=== PATIENT | female | born 1935 | race Caucasian/White ===

== ENCOUNTER → 2018-02-19 | Outpatient (CLI) | payer MEDICARE, OTHER ==
[2018-02-19 10:59] LABS: Calcium 8.8 mg/dL (8.4-10.2); Potassium 4.1 mmol/L (3.5-5.1)
[2018-02-19 19:14] LABS: Hemoglobin A1C 6.2 % (4.0-6.0)
== END | disposition home or self-care (01) ==
LOC: LABWHC1 10:00
PROVIDERS: ATTEND Internal Medicine
DX: E11.65 Type 2 diabetes mellitus with hyperglycemia (principal); E78.5 Hyperlipidemia, unspecified; N18.3 Chronic kidney disease, stage 3 (moderate); E11.22 Type 2 diabetes mellitus with diabetic chronic kidney disease
CPT/HCPCS: 36415; 80048; 83036

== ENCOUNTER → 2018-08-19 | Outpatient (CLI) | payer MEDICARE, OTHER ==
--- NOTE | 2018-08-19 14:03 | USB ---
Reason for exam: clinical finding. History: Patient history of breast cancer. Family history of breast cancer in paternal aunt and breast cancer in sister. Mastectomy of the left breast. Took antineoplastic for 5 years. Indicated problem(s): palpable abnormality and lump or thickening in the left breast. Physical Findings: Nurse Summary: 1cm scar and axilla (nurse dw). US Breast Limited LT Left limited breast ultrasound including focal area of concern, retroareolar and axilla demonstrates a 1.3 x 1.5 x 1.1cm irregular, lobular, mixed, hypoechoic, vascular lesion at 2 o'clock mid chest incision and a 2.3 x 2.7 x 2.3cm irregular, lobular, mixed, hypoechoic, vascular lesion at the axilla. These results were verbally communicated with the patient and result sheet given to the patient on 08/19/18. ASSESSMENT: Highly suggestive of malignancy, BI-RAD 5 RECOMMENDATION: Ultrasound core biopsy of the left breast. Called Dr. Garza with mammographic findings and has scheduled an appointment for the patient for 09/07/18 at 9:[address] Rojo. Biopsy scheduled for 08/31/18 at 12:20. PRELIMINARY REPORT CALLED AND FAXED TO DR. ROJO ON 08/19/18.
--- NOTE | 2018-08-19 14:04 | XR ---
EXAMINATION TYPE: XR chest 2V, XR ribs LT DATE OF EXAM: 08/19/2018 COMPARISON: Prior chest x-ray August 10, 2013. HISTORY: History of left-sided breast cancer with lump on left chest and axillary region per patient. Cough per order. TECHNIQUE: Frontal and lateral views of the chest are obtained. Frontal and oblique images of the le ft-sided ribs are acquired. FINDINGS: There is no focal air space opacity, pleural effusion, or pneumothorax seen. The cardiac silhouette size is within normal limits. Atherotic change in aortic knob is present. The osseous st ructures are intact. Cholecystectomy clips are redemonstrated. Left breast shadow is redemonstrated a bsent with left axillary surgical clips. No acute displaced left-sided rib fractures are seen. No suspicious focal expansile or destructive le ft rib lesion is identified on images saved. IMPRESSION: 1. Chronic changes without acute cardiopulmonary process. 2. No suspicious rib lesions or acute displaced fractures. If clinical concern for palpable mass pers ists further investigation with CT may be warranted.
== END | disposition home or self-care (01) ==
LOC: RADUSWWP 12:10
PROVIDERS: ATTEND Internal Medicine
DX: J98.4 Other disorders of lung (principal); L90.5 Scar conditions and fibrosis of skin; Z85.3 Personal history of malignant neoplasm of breast; Z90.12 Acquired absence of left breast and nipple
CPT/HCPCS: 71046

== ENCOUNTER → 2018-08-31 | Day surgery (SDC) | payer MEDICARE, OTHER ==
--- NOTE | 2018-08-31 13:13 | USB ---
EXAMINATION TYPE: US biopsy breast VAD LT, US biopsy breast add'l VAD LT DATE OF EXAM: 08/31/2018 CLINICAL HISTORY: N63 LUMP. Abnormal ultrasound. History of breast cancer diagnosed 1990. TECHNIQUE: Ultrasound guided core biopsy of left breast 2 sites with clip placement. COMPARISON: Prior left breast ultrasound August 19, 2018 FINDINGS: The procedure of ultrasound guided core biopsy was explained to the patient. Benefits, alternatives, and risks were discussed. An informed consent was then obtained. The patient was placed in supine positioning for imaging and for the procedure. Preprocedure ultrasound redemonstrates lobulated 1.3 cm hypoechoic mass 2:00 position and larger roughly 2.5 cm heterogeneous hypoechoic mass towards the axillary tail. The overlying skin was prepped and draped in usual sterile fashion. Lidocaine buffered with bicarbonate was used as anesthetic into the skin. Lidocaine with epinephrine is used as anesthetic into the deeper tissue up to area of concern in the left breast. A jenny was made with surgical scalpel. Under ultrasound guidance, a 12-gauge vacuum assisted biopsy gun device was used to obtain 4 core samples of the 2:00 lesion and 2 satisfactory core samples of the mass towards the axilla. Following this, a biopsy clip was left in both lesions. The patient tolerated the procedure well without any immediate complication. The patient was kept in the radiology department for short stay after the procedure and then discharged home in stable condition. Postprocedure mammogram cannot be performed per technologist due to lumpectomy changes with minimal residual tissue to compress. IMPRESSION: Successful, uncomplicated ultrasound guided core biopsy of 2 areas of concern in the remnant left breast or chest wall, full pathology results to follow. High index of suspicion noted at time of procedure for both sites. Pathology Results: Malignant A. LEFT BREAST, 2:00, ULTRASOUND GUIDED CORE BIOPSY: Invasive moderately differentiated ductal carcinoma (Grade 2). See Surgical Pathology Cancer Case Summary. B. LEFT AXILLARY TAIL, ULTRASOUND GUIDED CORE BIOPSY: Invasive moderately differentiated ductal carcinoma (Grade 2). See Surgical Pathology Cancer Case Summary. ADDENDUM REPORT Tumor cells positive for Estrogen Receptor and Progesterone Receptor by immunohistochemistry. Tumor cells negative for HER2/Jada by immunohistochemistry. Recommendation Surgical consult of the left breast. BRITTD
[2018-08-31 13:39] VITALS: BP 151/78; PULSE 59; RESP 13; TEMP 98
--- NOTE | 2018-08-31 14:14 | MM ---
Reason for exam: additional evaluation requested from abnormal screening. History: Patient history of breast cancer. Family history of breast cancer in paternal aunt and breast cancer in sister. Mastectomy of the left breast, 2000. Took antineoplastic for 5 years. [facility] Mammo LT Wo CAD CC and LM view(s) were taken of the left breast. ASSESSMENT: Post procedure mammogram for marker placement RECOMMENDATION: Surgical consultation of the left breast. PENDING PATHOLOGY RESULTS. JOSE MARIA
== END | disposition home or self-care (01) ==
LOC: RADUSWWP 11:06
PROVIDERS: ATTEND Internal Medicine
DX: C50.612 Malignant neoplasm of axillary tail of left female breast (principal); Z85.3 Personal history of malignant neoplasm of breast; Z80.3 Family history of malignant neoplasm of breast; Z90.12 Acquired absence of left breast and nipple
CPT/HCPCS: 88305; 88342; 88341; 77065; 19083; 19084; A4648; J2001

== ENCOUNTER → 2018-09-19 | Outpatient (CLI) | payer MEDICARE, OTHER ==
--- NOTE | 2018-09-21 07:23 | PE ---
EXAMINATION TYPE: PET CT fusion skull to thigh DATE OF EXAM: 09/19/2018 CLINICAL HISTORY: 82-year-old female initial staging left breast cancer recurrence. Patient with hist ory of remote left breast cancer diagnosed in 2000 status postsurgery. TECHNIQUE: Following the intravenous administration of 10.73 mCi of F-18 FDG, whole body images are performed from the skull base to the midthigh. Images are reviewed on the computer in the coronal, axial, and sagittal planes. Reconstructed rotating images are created on independent workstation and reviewed on the computer. A localization and attenuation correction CT is performed in conjunction with the PET scan. Glucose level: 125 mg/dL CTDI: 4.83 mGy DLP: 429.85 mGy-cm COMPARISON: Correlation ultrasound-guided biopsy 08/31/2018. FINDINGS: PET: Physiologic FDG uptake within the neck. Postsurgical changes of left mastectomy and axillary node dissection. There is evidence of left axill marc recurrence with a dominant left axillary mass measuring 2.5 cm, max SUV 3.5. Approximately 3 smaller hypermetabolic nodes are present in the left axilla just superiorly measuring up to 1.5 cm, max SUV 2.6. There is also focal chest wall recurrence at the mastectomy site measuring 1.2 cm, max SUV 2.6. Hypermetabolic mediastinal lymph nodes are present in the pretracheal and lower right paratracheal re gion as well as the subcarinal region measuring up to 9 mm, max SUV 6.1. The small hypermetabolic right hilar lymph node is also present, max SUV 4.8. Lower right paraesophageal lymph node is also present measuring 1.3 cm, max SUV 5.2. Average liver SUV 2.9. There is mild right hemicolonic uptake. More focal moderate to intense uptake is present at the junct ion of the cecum and ascending colon and also at the hepatic flexure (max SUV 5.2), probably physiolo gic but can be correlated with direct visualization. Otherwise, physiologic FDG uptake in the abdomen and pelvis. ATTENUATION CORRECTION CT: Visualized paranasal sinuses are clear. No cervical lymphadenopathy. Heart upper limits of normal size without pericardial effusion. Coronary vessel calcifications are pr esent. Ascending aorta borderline ectatic at 3.5 cm with mild atelectatic arch calcifications and co nventional arch vessel branching anatomy. Large caliber to the main right and left pulmonary arteries at 2.9 and 3.1 cm, respectively, suggests underlying pulmonary arterial hypertension. No consolidati on or pleural effusion. Cholecystectomy clips are present. Inferior splenule. No adrenal nodularity. Tiny calcified granuloma right liver lobe. No dilated small bowel, free fluid, or free air. Moderate atherosclerotic calcific ations abdominal aorta and iliac arteries. Normal appendix. No mesenteric or retroperitoneal lymphade nopathy. There is sigmoid diverticulosis. Bladder nondistended. Uterus is visualized. Ovaries not clearly seen, likely small and postmenopausal . No abnormal fluid collection in the pelvis or pelvic lymphadenopathy. Bones: Degenerative changes at the hips and pubic symphysis. No osseous destructive process seen. IMPRESSION: 1. Status post left mastectomy with a left axillary recurrence characterized by a dominant 2.5 cm mas s. Additional 3 smaller metastatic left axillary lymph nodes are present measuring up to 1.5 cm. Ther e is also left chest wall recurrence at the mastectomy site measuring 1.2 cm. 2. Nonenlarged and mildly enlarged metastatic mediastinal lymphadenopathy (paratracheal, subcarinal, right hilar, and lower right paraesophageal lymph nodes measuring up to 1.3 cm). 3. No additional metastatic disease identified. 4. There are a couple focal areas of moderate uptake along the right side of the colon which may be p hysiologic. Consider correlation with direct visualization as indicated to exclude small mucosal lesi ons. 5. Incidental: Suspect underlying pulmonary arterial hypertension. Sigmoid diverticulosis.
== END | disposition home or self-care (01) ==
LOC: RADPETMAIN 13:59
PROVIDERS: ATTEND Internal Medicine
DX: C77.3 Secondary and unspecified malignant neoplasm of axilla and upper limb lymph nodes (principal); C77.1 Secondary and unspecified malignant neoplasm of intrathoracic lymph nodes; C50.812 Malignant neoplasm of overlapping sites of left female breast; K57.30 Diverticulosis of large intestine without perforation or abscess without bleeding; Z90.12 Acquired absence of left breast and nipple
CPT/HCPCS: 78815; A9552

== ENCOUNTER → 2018-10-30 | Outpatient (CLI) | payer MEDICARE, OTHER ==
--- NOTE | 2018-10-30 15:46 | BD ---
EXAMINATION TYPE: Axial Bone Density DATE OF EXAM: 10/30/2018 COMPARISON: NONE CLINICAL HISTORY: Height: 65 Weight: 205.5 FRAX RISK QUESTIONS: Alcohol (3 or more units per day): no Family History (Parent hip fracture): no Glucocorticoids (More than 3mos): no (Ex: prednisone, prednisolone, methylprednisolone, dexamethasone, and hydrocortisone). History of Fracture in Adulthood: no Secondary Osteoporosis: 1. Type 1 Diabetes: no 2. Hyperthyroidism: no 3. Menopause before 45: no 4. Malnutrition: no 5. Chronic liver disease: no Rheumatoid Arthritis: no Current Tobacco Use: no RISK FACTORS HISTORY OF: Family History of Osteoporosis: yes Active: yes Diet low in dairy products/other sources of calcium: yes Postmenopausal woman: age53 Lost more than 2 inches in height since high school: no MEDICATIONS: Additional History: pt had breast cancer in 2000 and in 2018 EXAM MEASUREMENTS: Bone mineral densitometry was performed using the [employer] System. Bone mineral density as measured about the Lumbar spine is: ----- L1-L4(G/cm2): 1.026 T Score Values are as follows: ----- L2: -1.5 ----- L3: -1.2 ----- L4: -1.7 ----- L1-L4: -1.3 Bone mineral density has: increased 4.6 % since study of: 08.10.2013 Bone mineral density about the R hip (g/cm2): 1.407 Bone mineral density about the L hip (g/cm2): 1.464 T Score values are as follows: -----R Neck: 2.7 -----L Neck: 3.1 -----R Total: -0.6 -----L Total: -0.7 Bone mineral density has: increased 4.4 % since study of: 08.10.2013 IMPRESSION: Osteopenia (T Score between -2.5 and -1) process. There remains slightly increased risk of fracture and the patient may be considered for treatment. Re-Screen 2-5 years. NOTE: T-SCORE=SD OF THE YOUNG ADULT MEAN.
== END ==
LOC: RADBDWWP 09:40
PROVIDERS: ATTEND Internal Medicine Hematology & Oncology
DX: C50.112 Malignant neoplasm of central portion of left female breast (principal); M85.80 Other specified disorders of bone density and structure, unspecified site; Z78.0 Asymptomatic menopausal state
CPT/HCPCS: 77080

== ENCOUNTER → 2019-03-18 | Outpatient (CLI) | payer MEDICARE, OTHER ==
--- NOTE | 2019-03-18 12:42 | XR ---
EXAMINATION TYPE: XR chest 2V DATE OF EXAM: 03/18/2019 COMPARISON: 08/19/2018 INDICATION: J06.9 TECHNIQUE: Frontal and lateral views of the chest are obtained. FINDINGS: The heart size is normal. The pulmonary vasculature is normal. Mild right lower lobe infiltrate is present. Coronary for subsegmental atelectasis. Early pneumonia i s not excluded.. IMPRESSION: 1. Mild infiltrate at the right posterior lung base. Correlate for subsegmental atelectasis. Early pn eumonia could be considered.
[2019-03-18 12:47] LABS: Basophils # (A) 0.1 k/uL (0-0.2); Basophils % (A) 2 %; Eosinophils # (A) 0.1 k/uL (0-0.7); Eosinophils % (A) 2 %; HCT 33.2 % (34.0-46.0); HGB 11.3 gm/dL (11.4-16.0); Lymphocytes # (A) 0.8 k/uL (1.0-4.8); Lymphocytes % (A) 24 %; MCH 36.7 pg (25.0-35.0); Macrocytosis Moderate; Mean Platelet Volume 7.4; Monocytes # (A) 0.2 k/uL (0-1.0); Monocytes % (A) 6 %; Neutrophils % (A) 63 %; Platelet Count 193 k/uL (150-450); RBC 3.07 m/uL (3.80-5.40); RDW 14.9 % (11.5-15.5); WBC 3.2 k/uL (3.8-10.6)
== END | disposition home or self-care (01) ==
LOC: LABWHC1 11:23
PROVIDERS: ATTEND Internal Medicine
DX: J98.11 Atelectasis (principal); R91.8 Other nonspecific abnormal finding of lung field
CPT/HCPCS: 36415; 71046; 85025

== ENCOUNTER 2019-04-02 08:05 | Inpatient (IN) | payer MEDICARE, OTHER ==
[2019-04-02] MEDS ORDERED: ASPIRIN 81 MG PO STA (08:27)
[2019-04-02] MEDS ORDERED: METOPROLOL TARTRATE 25 MG TAB PO STA (08:28)
--- NOTE | 2019-04-02 08:37 | ED ---
General Adult HPI - General Chief complaint: Chest Pain Stated complaint: SOB, Chest Pain Time Seen by Provider: 04/02/19 08:10 Source: patient, family, RN notes reviewed Mode of arrival: wheelchair Limitations: no limitations - History of Present Illness Initial comments: This is an 83-year-old female presents emergency department with past medical history significant for breast cancer and atrial fibrillation as well as high blood pressure high cholesterol. Patient states she is a diet-controlled diabetic. Patient comes in today because at 4:30 this morning she woke up with a pain in her chest that radiated to her back and it made her short of breath. Patient states she's had no fever chills or cough. Patient states she's had A. fib in the past but it never caused her pain in the past. Patient denies any calf tenderness. Patient states she normally has some edema in her legs but that it looks pretty good. Patient denies abdominal pain patient denies nausea vomiting diarrhea per patient denies headache patient denies numbness weakness. Patient denies any lightheadedness or dizziness. - Related Data Home Medications Medication Instructions Recorded Confirmed Cholecalciferol [Vitamin D3] 1,000 unit PO DAILY 03/27/16 04/02/19 Apixaban [Eliquis] 5 mg PO BID 08/26/18 04/02/19 Calcium/Magnesium/Zinc 1 tab PO DAILY 08/26/18 04/02/19 [Qfjsohc-Gbrkbebjo-Pnhu Tablet] Cetirizine HCl [Zyrtec] 10 mg PO DAILY PRN 08/26/18 04/02/19 Cinnamon Bark [Cinnamon] 500 mg PO MOWEFR 08/26/18 04/02/19 Cranberry Fruit Extract [Cranberry] 200 mg PO DAILY 08/26/18 04/02/19 Rosuvastatin Calcium [Crestor] 5 mg PO MOWEFR 08/26/18 04/02/19 amLODIPine [Norvasc] 2.5 mg PO DAILY 08/26/18 04/02/19 Fish Oil/Dha/Epa [Fish Oil 1,200 1 cap PO MOWEFR 04/02/19 04/02/19 mg Fish Oil] Furosemide [Lasix] 20 mg PO DAILY 04/02/19 04/02/19 Metoprolol Tartrate [Lopressor] 25 mg PO BID 04/02/19 04/02/19 Omeprazole [PriLOSEC] 20 mg PO DAILY 04/02/19 04/02/19 Prochlorperazine [Compazine] 10 mg PO Q6H PRN 04/02/19 04/02/19 Ribociclib Succinate/Letrozole 1 dose PO DIRECTED 04/02/19 04/02/19 [Kisqali Femara 400 mg Co-Pack] Ubidecarenone [Co Q-10] 300 mg PO DAILY 04/02/19 04/02/19 Allergies Allergy/AdvReac Type Severity Reaction Status Date / Time erythromycin base Allergy Rash/Hives Verified 04/02/19 09:14 [From E-Mycin] Sulfa (Sulfonamide Allergy Rash/Hives Verified 04/02/19 09:14 Antibiotics) Review of Systems ROS Statement: Those systems with pertinent positive or pertinent negative responses have been documented in the HPI. ROS Other: All systems not noted in ROS Statement are negative. Past Medical History Past Medical History: Atrial Fibrillation, GERD/Reflux, Hyperlipidemia, Hypertension Additional Past Medical History / Comment(s): bilat cataracts History of Any Multi-Drug Resistant Organisms: None Reported Past Surgical History: Breast Surgery, Cholecystectomy Additional Past Surgical History / Comment(s): Left breast mastectomy 2000, Cataract surgey 2016, breast cancer 2019 Past Anesthesia/Blood Transfusion Reactions: No Reported Reaction Past Psychological History: No Psychological Hx Reported Smoking Status: Never smoker Past Alcohol Use History: None Reported Past Drug Use History: None Reported General Exam - General Exam Comments Initial Comments: GENERAL: Patient is well-developed and well-nourished. Patient is nontoxic and well- hydrated and is in mild distress. ENT: Neck is soft and supple. No significant lymphadenopathy is noted. Oropharynx is clear. Moist mucous membranes. Neck has full range of motion without eliciting any pain. EYES: The sclera were anicteric and conjunctiva were pink and moist. Extraocular movements were intact and pupils were equal round and reactive to light. Eyelids were unremarkable. PULMONARY: Unlabored respirations. Good breath sounds bilaterally. No audible rales rhonchi or wheezing was noted. CARDIOVASCULAR: Patient's heart rate is irregular and rapid. Heart rates about 140 beats minute ABDOMEN: Soft and nontender with normal bowel sounds. No palpable organomegaly was noted. There is no palpable pulsatile mass. SKIN: Skin is clear with no lesions or rashes and otherwise unremarkable. NEUROLOGIC: Patient is alert and oriented x3. Cranial nerves II through XII are grossly intact. Motor and sensory are also intact. Normal speech, volume and content. Symmetrical smile. MUSCULOSKELETAL: Normal extremities with adequate strength and full range of motion. No lower extremity swelling or edema. No calf tenderness. LYMPHATICS: No significant lymphadenopathy is noted PSYCHIATRIC: Normal psychiatric evaluation. Limitations: no limitations Course Vital Signs 04/02/19 04/02/19 04/02/19 08:10 09:10 09:56 Temperature 98 F Pulse Rate 104 H 145 H Pulse Rate [ 131 H Flight Nurse ] Respiratory 16 20 Rate Blood Pressure 125/81 98/62 O2 Sat by Pulse 95 97 Oximetry 04/02/19 04/02/19 04/02/19 09:57 10:20 10:33 Temperature Pulse Rate 125 H 106 H 115 H Pulse Rate [ Flight Nurse ] Respiratory 20 20 20 Rate Blood Pressure 106/52 98/76 109/79 O2 Sat by Pulse 97 97 97 Oximetry Medical Decision Making - Medical Decision Making EKG shows atrial for ablation with rapid ventricular response at 145 bpm QRS is 86 QT interval 318 QTC is 493. Patient's EKG shows no ST segment elevation or depression. Chest x-ray shows no acute abnormality. I started the patient on a Cardizem drip when she arrived they also gave her her morning dose of metoprolol. Patient's heart rate was down to about 125-135 but her blood pressure was lowering as well as a gave her 500 mL bolus and did not give her any bolus of Cardizem just an infusion. I spoke with Dr. Garza agreed to admit the patient admitted the patient I wrote admitting orders I continued the Cardizem on the floor. - Lab Data Result diagrams: 04/02/19 08:30 04/02/19 08:30 Lab Results 04/02/19 04/02/19 04/02/19 Range/Units 08:30 08:30 08:30 WBC 5.1 (3.8-10.6) k/uL RBC 3.12 L (3.80-5.40) m/uL Hgb 11.4 (11.4-16.0) gm/dL Hct 32.2 L (34.0-46.0) % MCV 103.3 H (80.0-100.0) fL MCH 36.5 H (25.0-35.0) pg MCHC 35.3 (31.0-37.0) g/dL RDW 14.0 (11.5-15.5) % Plt Count 213 (150-450) k/uL Neutrophils % 82 % Lymphocytes % 12 % Monocytes % 3 % Eosinophils % 0 % Basophils % 1 % Neutrophils # 4.2 (1.3-7.7) k/uL Lymphocytes # 0.6 L (1.0-4.8) k/uL Monocytes # 0.2 (0-1.0) k/uL Eosinophils # 0.0 (0-0.7) k/uL Basophils # 0.0 (0-0.2) k/uL Poikilocytosis Slight Macrocytosis Slight PT (9.0-12.0) sec INR (<1.2) APTT (22.0-30.0) sec D-Dimer 0.32 (<0.60) mg/L FEU Sodium 139 (137-145) mmol/L Potassium 3.8 (3.5-5.1) mmol/L Chloride 99 (98-107) mmol/L Carbon Dioxide 31 H (22-30) mmol/L Anion Gap 9 mmol/L BUN 20 H (7-17) mg/dL Creatinine 1.04 (0.52-1.04) mg/dL Est GFR (CKD-EPI)AfAm 58 (>60 ml/min/1.73 sqM) Est GFR (CKD-EPI)NonAf 50 (>60 ml/min/1.73 sqM) Glucose 203 H (74-99) mg/dL Calcium 8.9 (8.4-10.2) mg/dL Magnesium 1.7 (1.6-2.3) mg/dL Total Bilirubin 0.9 (0.2-1.3) mg/dL AST 23 (14-36) U/L ALT 23 (9-52) U/L Alkaline Phosphatase 41 (38-126) U/L Troponin I (0.000-0.034) ng/mL NT-Pro-B Natriuret Pep pg/mL Total Protein 7.4 (6.3-8.2) g/dL Albumin 4.1 (3.5-5.0) g/dL 04/02/19 04/02/19 04/02/19 Range/Units 08:30 08:30 08:30 WBC (3.8-10.6) k/uL RBC (3.80-5.40) m/uL Hgb (11.4-16.0) gm/dL Hct (34.0-46.0) % MCV (80.0-100.0) fL MCH (25.0-35.0) pg MCHC (31.0-37.0) g/dL RDW (11.5-15.5) % Plt Count (150-450) k/uL Neutrophils % % Lymphocytes % % Monocytes % % Eosinophils % % Basophils % % Neutrophils # (1.3-7.7) k/uL Lymphocytes # (1.0-4.8) k/uL Monocytes # (0-1.0) k/uL Eosinophils # (0-0.7) k/uL Basophils # (0-0.2) k/uL Poikilocytosis Macrocytosis PT 10.4 (9.0-12.0) sec INR 1.0 (<1.2) APTT 27.5 (22.0-30.0) sec D-Dimer (<0.60) mg/L FEU Sodium (137-145) mmol/L Potassium (3.5-5.1) mmol/L Chloride (98-107) mmol/L Carbon Dioxide (22-30) mmol/L Anion Gap mmol/L BUN (7-17) mg/dL Creatinine (0.52-1.04) mg/dL Est GFR (CKD-EPI)AfAm (>60 ml/min/1.73 sqM) Est GFR (CKD-EPI)NonAf (>60 ml/min/1.73 sqM) Glucose (74-99) mg/dL Calcium (8.4-10.2) mg/dL Magnesium (1.6-2.3) mg/dL Total Bilirubin (0.2-1.3) mg/dL AST (14-36) U/L ALT (9-52) U/L Alkaline Phosphatase (38-126) U/L Troponin I <0.012 (0.000-0.034) ng/mL NT-Pro-B Natriuret Pep 786 pg/mL Total Protein (6.3-8.2) g/dL Albumin (3.5-5.0) g/dL Critical Care Time Critical Care Time: Yes Total Critical Care Time: 35 Disposition Clinical Impression: Atrial fibrillation with rapid ventricular response Disposition: ADMITTED IP TO THIS HOSP Referrals: Josias Garza MD [Primary Care Provider] - 1-2 days Time of Disposition: 10:36
[2019-04-02 08:52] LABS: Basophils % (A) 1 %; Eosinophils % (A) 0 %; HCT 32.2 % (34.0-46.0); HGB 11.4 gm/dL (11.4-16.0); Lymphocytes # (A) 0.6 k/uL (1.0-4.8); Lymphocytes % (A) 12 %; MCH 36.5 pg (25.0-35.0); MCHC 35.3 g/dL (31.0-37.0); MCV 103.3 fL (80.0-100.0); Macrocytosis Slight; Mean Platelet Volume 6.6; Monocytes # (A) 0.2 k/uL (0-1.0); Monocytes % (A) 3 %; Neutrophils # (A) 4.2 k/uL (1.3-7.7); Neutrophils % (A) 82 %; Platelet Count 213 k/uL (150-450); Poikilocytosis Slight; RBC 3.12 m/uL (3.80-5.40); WBC 5.1 k/uL (3.8-10.6)
--- NOTE | 2019-04-02 08:59 | XR ---
EXAMINATION TYPE: XR chest 2V DATE OF EXAM: 04/02/2019 COMPARISON: 03/18/2019 INDICATION: Chest pain TECHNIQUE: Frontal and lateral views of the chest are obtained. FINDINGS: The heart size is normal. The pulmonary vasculature is normal. The lungs are clear. IMPRESSION: 1. No acute pulmonary process.
[2019-04-02 09:01] LABS: Albumin 4.1 g/dL (3.5-5.0); Calcium 8.9 mg/dL (8.4-10.2); Magnesium 1.7 mg/dL (1.6-2.3); Potassium 3.8 mmol/L (3.5-5.1); Total Bilirubin 0.9 mg/dL (0.2-1.3); Total Protein 7.4 g/dL (6.3-8.2)
[2019-04-02] MEDS: DILTIAZEM 125 MG in SODIUM CHLORIDE 0.9% 100 ML IV SCH (09:06)
[2019-04-02 09:14] LABS: Partial Thromboplastin Time 27.5 sec (22.0-30.0); Prothrombin Time 10.4 sec (9.0-12.0)
[2019-04-02] MEDS ORDERED: SODIUM CHLORIDE 0.9% 500 ML 500 ML IV ONE (10:33)
[2019-04-02] MEDS ORDERED: NITROGLYCERIN SL TABS 0.4 MG TAB SUBLINGUAL PRN (10:37)
[2019-04-02] MEDS ORDERED: PROCHLORPERAZINE 10 MG TAB PO PRN (11:55)
[2019-04-02] MEDS ORDERED: LORATADINE 10 MG TAB PO PRN (11:55)
[2019-04-02] MEDS ORDERED: [UNRECOGNIZED DRUG - OTHER] PO SCH (12:00)
[2019-04-02] MEDS ORDERED: LETROZOLE PO SCH (12:00)
[2019-04-02] MEDS ORDERED: RIBOCICLIB SUCCINATE PO SCH (12:00)
[2019-04-02 13:40] LABS: Glucose,Whole Blood 142 mg/dL (75-99)
[2019-04-02] MEDS ORDERED: RIBOCICLIB PO SCH (14:00)
[2019-04-02] MEDS: INSULIN ASPART (NovoLOG) 100 UNIT/ML VIAL SQ SCH ×2 (14:00→17:23)
[2019-04-02 17:17] LABS: Glucose,Whole Blood 166 mg/dL (75-99)
--- NOTE | 2019-04-02 17:20 | HP ---
HISTORY AND PHYSICAL DATE OF SERVICE: 04/02/2019 This patient is an 83-year-old old white female, a . DATA: Height is 5 feet 5 inches, weight 91.172 kg, BSA 1.98 m2. BMI 33.4. ALLERGIES AND ADVERSE EFFECTS: 1. ERYTHROMYCIN BASE causes rash and hives. 2. SULFA AND SULFONAMIDE ANTIBIOTIC causes rash and hives. 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 She tried to do many things to help that go away until about 7:00, when she decided to call her daughter to take her to the emergency room. HISTORY OF PRESENT ILLNESS: Mrs. 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 Subsequently at about 4:30 in the morning the pain in her chest woke her up and she also had some shortness of breath. She had no history of chills or cough, but she has a history of atrial fibrillation that was controlled and she is on Eliquis anticoagulant, seen by Dr. Cathie Muñoz, the child support specialist. She denied any abdominal pain or nausea or vomiting or diarrhea. No headache, no numbness or tingling. PAST MEDICAL HISTORY: 1. Left breast cancer with the history of recent recurrence with lymph node in the left axilla, currently under the care of Dr. Rashid, Hematology/Oncology, who started her on Femara medication. 2. History of atrial fibrillation. 3. GERD with reflux. 4. Hyperlipidemia. 5. Hypertension. 6. History of bilateral cataract extraction. 7. Breast lumpectomy. 8. Cholecystectomy. 9. Left breast mastectomy in 2000. 10.Recurrence in 2019. Otherwise, no other associated medical problem. She has generalized weakness and that is associated with atrial fibrillation. Review of the other was essentially negative. CURRENT LIST OF MEDICATIONS: 1. Eliquis 5 mg twice a day. 2. Vitamin D3 1000 daily. 3. Calcium, magnesium and zinc 1 tablet daily. 4. Zyrtec 10 mg once daily. 5. She is also on other home remedies, including cinnamon 500 mg p.o. 6. Cranberry fruit extract 200 mg daily. 7. Rosuvastatin (Crestor) 5 mg daily. 8. Amlodipine 2.5 mg daily. 9. Fish oil 1 capsule daily. 10.Lasix 20 mg daily. 11.Omeprazole for GERD 20 mg daily. She has a history of nausea associated with the chemo or the hormonal therapy for the recurrence of breast cancer in the lymph node. She takes Kisqali, Femara, 400 mg, and she takes 1 tablet as directed by Oncology. 1. Co-Q 10, 300 mg once daily. REVIEW OF SYSTEMS: NEUROPSYCHIATRY: She has no history of stroke in the past. However, she has occasionally ups and downs with the underlying mild anxiety. CARDIOVASCULAR: She has history of atrial fibrillation with rapid ventricular response with a feeling of chest discomfort. RESPIRATORY: Minimal shortness of breath. GI: No nausea, vomiting or diarrhea. : No dysuria or hematuria. MUSCULOSKELETAL: Feeling weak and generally not feeling well. PHYSICAL EXAMINATION: The patient was conscious, alert, oriented x3. HEENT: The head was normocephalic, atraumatic. Pupils were equal, reactive. Conjunctivae were pink and sclera nonicteric. The nose was negative. She has normal hearing. Oropharynx showed natural teeth with no dentures. HEART: PMI in the fifth intercostal space outside midclavicular line with the underlying irregular irregularity with the rapid ventricular response. At the time of admission the heart rate was 140. LUNGS: Lungs on auscultation were clear. No wheezes. No rhonchi. ABDOMEN: Soft, nontender. Positive bowel sounds. SKIN: Warm and dry. NEUROLOGICAL: Cranial nerves were intact. No lateralizing sign, with normal speech and no evidence of TIA or CVA. MUSCULOSKELETAL: Generalized weakness, but she is able to ambulate. VITAL SIGNS: At the time of admission, her temperature was 98, pulse rate 145, respiratory rate 16 to 20, and blood pressure was 98/62 with the increased heart rate. Subsequently she was started in the ER on Cardizem drip and continued on the beta wyatt and her heart rate started to improve gradually. Subsequently she had consultation with Cardiology, who did not see her at the time of evaluation. She had an EKG as well that showed ventricular response [address]-segment elevation. LABS: White count is normal at 5.1 with hemoglobin 11.4, hematocrit 32.2 with MCV 103.3 and platelet count 213. Chemistry profile indicates that her D-dimer was normal at 0.32, and her sodium 139, potassium 3.8, chloride 99, carbon dioxide 31. Her anion gap was 9, BUN of 20, creatinine 1.04, with the underlying estimated glomerular filtration rate for non- 50 with the underlying chronic kidney disease, stage IIIA. Her blood sugar was elevated at 203; she has diabetes mellitus and currently was not taking any medication, as controlled by diet. Prior to that she was on insulin to scale. Magnesium is 1.7, calcium is 8.9, normal, and total bilirubin 0.9. Her AST 23, ALT 23, both within normal limits, as well as alkaline phosphatase. Her protein total 7.4 and albumin 4.1, which is normal. Her troponin was less than 0.012. Her beta natriuretic peptide was 786. IMAGING: The current chest x-ray at the time of admission indicates no acute pulmonary process. The EKG was indicating heart rate 145 with the atrial fibrillation and rapid ventricular response with the questionable inferior infarct in the past with abnormal EKG. ASSESSMENT: 1. Acute atrial fibrillation with rapid ventricular response. 2. Underlying history of chest discomfort with the event; rule out unstable angina. 3. Hyperlipidemia. 4. History of hypertension. 5. Diabetes mellitus. PLAN: Will continue her current medication. We are going to start insulin to scale. She is on Cardizem drip with the consultation of Cardiology for further evaluation and treatment. Continuation of Eliquis as anticoagulant for the atrial fibrillation. Continue her home medication with adjustment as needed and subsequently increase the beta wyatt. MMODL / IJN: [id number] /
[2019-04-02] MEDS: METOPROLOL TARTRATE 50 MG TAB PO SCH (20:33)
[2019-04-02] MEDS: APIXABAN 5 MG TAB PO SCH (20:33)
[2019-04-02] MEDS: LATANOPROST 0.005% OPHTH DROPS 2.5 ML BTL BOTH EYES SCH (20:37)
[2019-04-02] MEDS: ATORVASTATIN 10 MG TAB PO SCH (20:37)
[2019-04-02] MEDS ORDERED: METOPROLOL TARTRATE 25 MG TAB PO SCH (21:00)
[2019-04-02 21:11] LABS: Glucose,Whole Blood 208 mg/dL (75-99)
[2019-04-03 04:13] LABS: Cholesterol 129 mg/dL (<200); HDL Cholesterol 33 mg/dL (40-60); LDL Cholesterol,Calculated 76 mg/dL (0-99); Triglycerides 102 mg/dL (<150)
[2019-04-03 06:23] LABS: Glucose,Whole Blood 176 mg/dL (75-99)
[2019-04-03] MEDS: INSULIN ASPART (NovoLOG) 100 UNIT/ML VIAL SQ SCH ×3 (06:38→17:46)
[2019-04-03] MEDS: PANTOPRAZOLE 40 MG TABLET PO SCH (06:53)
[2019-04-03] MEDS ORDERED: ASPIRIN 325 MG TAB PO SCH (09:00)
[2019-04-03] MEDS: APIXABAN 5 MG TAB PO SCH ×2 (09:27→20:40)
[2019-04-03] MEDS: METOPROLOL TARTRATE 50 MG TAB PO SCH (09:27)
[2019-04-03] MEDS: CHOLECALCIFEROL 1,000 UNIT TAB PO SCH (09:27)
[2019-04-03] MEDS: NON FORMULARY DRUG (Calcium/Magnesium/Zinc [Calcium-Magnesium-Zinc Tablet] 1 TAB) PO SCH (09:36)
[2019-04-03] MEDS: NON FORMULARY DRUG (Ubidecarenone [Co Q-10] 300 MG) PO SCH (09:36)
[2019-04-03] MEDS: DILTIAZEM 125 MG in SODIUM CHLORIDE 0.9% 100 ML IV SCH (10:26)
[2019-04-03 11:53] LABS: Glucose,Whole Blood 221 mg/dL (75-99)
[2019-04-03] MEDS ORDERED: DEXTROSE 5% IN WATER 100 ML with AMIODARONE 150 MG IV ONE (14:00)
[2019-04-03] MEDS ORDERED: AMIODARONE 360 MG in DEXTROSE 5% IN WATER 200 ML IV ONE ×2 (14:00)
[2019-04-03] MEDS: RIBOCICLIB PO SCH (14:24)
--- NOTE | 2019-04-03 15:12 | P.PN ---
Subjective Progress Note Date: 04/03/19 Principal diagnosis: #1 atrial fibrillation with a rapid ventricular response. #2 diabetes mellitus type 2 history be on diet currently, currently on insulin to scale. #3 normal troponin and her total cholesterol 129., Normal d-dimer. #4 history of left breast cancer status post mastectomy 22 years ago with recent lymph node positive for malignancy [address] Rashid. #5 history of chronic cough with the questionable asthmatic component. Chest x- ray no acute pulmonary process. #6 hyperlipidemia. Number #7 hypertension. Essential. Progress note date of service 04/03/2019 Patient conscious alert oriented very communicating she still feeling her heart is regular and pumping with the underlying atrial fibrillation with rapid ventricular response. I did do increase her metoprolol tartrate to 50 mg twice a day. Subsequently Dr. AMANDA Muñoz cardiology increase it to 75 mg twice a day. That was yesterday. Today he still she is averaging 113 heart rate with rapid ventricular response and irregular, Dr. PATEL discontinuing the Cardizem and starting the amiodarone dr alexander with the intention of assuming good control of the heart rate. Currently her blood pressure 101/ 57 WAS PRIOR TO THAT 128/84 AND IT DEPEND ON THE HEART RATE THE BLOOD PRESSURE DROPPED WITH INCREASED IRREGULARITIES. Patient on anticoagulation with Eliquis 5 mg twice a day even prior the admission with the anticoagulated. On examination: Patient conscious alert oriented 3 no neuro deficit and ambulatory. HEENT negative Neck was supple no JVD no thyromegaly no lymphadenopathy. Chest: Clear to auscultation percussion and no wheezes or rhonchi's. Heart: Irregular irregularityr compensated. Abdomen is soft positive bowel sounds no organ enlargement. Extremities: Dependent edema trace to 1+ with the varicose veins of the lower extremities. Neurologically stable, no neuro deficit, no lateralizing sign, moving 4 extremities. Assessment: #1 patient presented with acute atrial fibrillation with a rapid ventricular response. 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 With the attempt controlled heart rate. And he also increased her beta wyatt METOPROLOL tartrate to 75 mg twice a day. Plan: #1 continuing the current medication. [address] AMANDA Muñoz cardiology order and the recommendation. Objective - Vital Signs Vital signs: Vital Signs Temp 98.4 F 04/03/19 07:57 Pulse 114 H 04/03/19 07:57 Resp 18 04/03/19 07:57 BP 101/57 04/03/19 07:57 Pulse Ox 97 04/03/19 07:57 Intake & Output 04/02/19 04/03/19 04/03/19 18:59 06:59 18:59 Intake Total 240 155 Balance 240 155 Weight 91.172 kg 90.4 kg Intake: Intake, IV Titration 35 Amount Diltiazem 125 mg In 35 Sodium Chloride 0.9% 100 ml @ 5 MG/HR 5 mls/hr IV .Q24H [facility] Rx#:[id number] Oral 240 120 Other: # Voids 1 2 - Labs CBC & Chem 7: 04/02/19 08:30 04/02/19 08:30 Labs: Abnormal Lab Results - Last 24 Hours (Table) 04/02/19 04/02/19 04/02/19 Range/Units 08:30 17:16 21:09 POC Glucose (mg/dL) 166 H 208 H (75-99) mg/dL HDL Cholesterol 33 L (40-60) mg/dL 04/03/19 04/03/19 Range/Units 06:22 11:41 POC Glucose (mg/dL) 176 H 221 H (75-99) mg/dL HDL Cholesterol (40-60) mg/dL
--- NOTE | 2019-04-03 15:14 | P.HPIM ---
History of Present Illness H&P Date: 04/02/19 Chief Complaint: Acute atrial fibrillation with rapid ventricular response/chest pain History and physical dictated on 04/02/2019 on the dictation on the phone. Past Medical History Past Medical History: Atrial Fibrillation, Cancer, Eye Disorder, GERD/Reflux, Hyperlipidemia, Hypertension, Liver Disease, Osteoarthritis (OA), Vascular Disorder Additional Past Medical History / Comment(s): 2000 L breast cancer with mastectomy, 09/2015 L breast cancer reoccurrence and pt taking oral chemotherapy, NIDDM diet controlled, L eye ocular stroke, bilateral lower leg edema, occasional low back pain, osteopenia, yellow jaundice many years ago, poor circulation, sinus problems, UTIs. History of Any Multi-Drug Resistant Organisms: None Reported Past Surgical History: Breast Surgery, Cholecystectomy Additional Past Surgical History / Comment(s): L breast biopsy, left breast mastectomy 2000, colonoscopies, bilateral cataract removals/lens implants. Past Anesthesia/Blood Transfusion Reactions: No Reported Reaction Past Psychological History: No Psychological Hx Reported Additional Psychological History / Comment(s): Pt resides alone. She has a cane but has not needed to use it lately. She drives. She owns a glucometer, it needs a new battery. Smoking Status: Never smoker Past Alcohol Use History: None Reported Past Drug Use History: None Reported - Past Family History Father Family Medical History: Musculoskeletal Disorder, Neurologic Disorder Additional Family Medical History / Comment(s): Parkinson's dx. Mother Family Medical History: Cancer Additional Family Medical History / Comment(s): Mother had lung cancer. She was bipolar. Sister(s) Family Medical History: Cancer, Musculoskeletal Disorder, Neurologic Disorder Additional Family Medical History / Comment(s): Sister with breast cancer and had parkinson's dx. Medications and Allergies Home Medications Medication Instructions Recorded Confirmed Type Cholecalciferol [Vitamin D3] 1,000 unit PO DAILY 03/27/16 04/02/19 History Apixaban [Eliquis] 5 mg PO BID 08/26/18 04/02/19 History Calcium/Magnesium/Zinc 1 tab PO DAILY 08/26/18 04/02/19 History [Fzdvbow-Ygujmvgyw-Xmdu Tablet] Cetirizine HCl [Zyrtec] 10 mg PO DAILY PRN 08/26/18 04/02/19 History Cinnamon Bark [Cinnamon] 500 mg PO MOWEFR 08/26/1801/19 History Cranberry Fruit Extract [Cranberry] 200 mg PO DAILY 08/26/18 04/02/19 History Rosuvastatin Calcium [Crestor] 5 mg PO MOWEFR 08/26/18 04/02/19 History amLODIPine [Norvasc] 2.5 mg PO DAILY 08/26/18 04/02/19 History Fish Oil/Dha/Epa [Fish Oil 1,200 1 cap PO MOWEFR 04/02/19 04/02/19 History mg Fish Oil] Furosemide [Lasix] 20 mg PO DAILY 04/02/19 04/02/19 History Latanoprost Ophth [Xalatan 0.005%] 1 drop BOTH EYES HS 04/02/19 04/02/19 History Metoprolol Tartrate [Lopressor] 25 mg PO BID 04/02/19 04/02/19 History Omeprazole [PriLOSEC] 20 mg PO DAILY 04/02/19 04/02/19 History Prochlorperazine [Compazine] 10 mg PO Q6H PRN 04/02/19 04/02/19 History Ribociclib Succinate/Letrozole 1 dose PO DIRECTED 04/02/19 04/02/19 History [Kisqali Femara 400 mg Co-Pack] Ubidecarenone [Co Q-10] 300 mg PO DAILY 04/02/19 04/02/19 History Allergies Allergy/AdvReac Type Severity Reaction Status Date / Time erythromycin base Allergy Rash/Hives Verified 04/02/19 09:14 [From E-Mycin] Sulfa (Sulfonamide Allergy Rash/Hives Verified 04/02/19 09:14 Antibiotics) Physical Exam Vitals: Vital Signs Temp Pulse Resp BP Pulse Ox 04/03/19 07:57 98.4 F 114 H 18 101/57 97 04/03/19 03:53 98.3 F 100 16 128/84 94 L 04/03/19 03:52 117 H 20 04/03/19 00:00 98 F 112 H 18 124/79 95 04/02/19 20:41 93 L 04/02/19 20:00 97.8 F 115 H 18 128/78 98 04/02/19 18:33 97.7 F 117 H 20 123/68 96 04/02/19 16:00 86 20 105/56 97 Intake and Output 04/03/19 04/03/19 04/03/19 06:59 14:59 22:59 Intake Total 155 Balance 155 Intake: Intake, IV Titration 35 Amount Diltiazem 125 mg In 35 Sodium Chloride 0.9% 100 ml @ 5 MG/HR 5 mls/hr IV .Q24H [facility] Rx#:[id number] Oral 120 Other: # Voids 2 Weight 90.4 kg Results CBC & Chem 7: 04/02/19 08:30 04/02/19 08:30 Labs: Abnormal Lab Results - Last 24 Hours (Table) 04/02/19 04/02/19 04/02/19 Range/Units 08:30 17:16 21:09 POC Glucose (mg/dL) 166 H 208 H (75-99) mg/dL HDL Cholesterol 33 L (40-60) mg/dL 04/03/19 04/03/19 Range/Units 06:22 11:41 POC Glucose (mg/dL) 176 H 221 H (75-99) mg/dL HDL Cholesterol (40-60) mg/dL Thrombosis Risk Factor Assmnt - Choose All That Apply Any of the Below Risk Factors Present?: Yes Each Factor Represents 1 point: Swollen legs (current) Other Risk Factors: Yes Each Risk Factor Represents 2 Points: Malignancy Each Risk Factor Represents 3 Points: Age 75 years or older Other congenital or acquired thrombophilia - If yes, enter type in comment: No Thrombosis Risk Factor Assessment Total Risk Factor Score: 6 Thrombosis Risk Factor Assessment Level: High Risk
[2019-04-03 17:03] LABS: Glucose,Whole Blood 158 mg/dL (75-99)
[2019-04-03 17:27] LABS: Albumin 3.7 g/dL (3.5-5.0); Potassium 3.9 mmol/L (3.5-5.1); Total Bilirubin 0.9 mg/dL (0.2-1.3); Total Protein 6.8 g/dL (6.3-8.2)
[2019-04-03] MEDS ORDERED: AMIODARONE 300 MG in DEXTROSE 5% IN WATER 250 ML IV SCH ×2 (20:00)
[2019-04-03] MEDS: LATANOPROST 0.005% OPHTH DROPS 2.5 ML BTL BOTH EYES SCH (20:40)
[2019-04-03] MEDS ORDERED: METOPROLOL TARTRATE 25 MG TAB PO SCH (21:00)
[2019-04-03 21:03] LABS: Glucose,Whole Blood 188 mg/dL (75-99)
--- NOTE | 2019-04-03 22:33 | CONS ---
CONSULTATION This is a lady with a remote history of atrial fibrillation, paroxysmal in nature, for which I had placed her on Eliquis 5 mg b.i.d. She also has a history of breast cancer for which she had a recent metastasis requiring a repeat chemotherapy. She has hypertension and hyperlipidemia. I am not sure if we performed a stress test for her or not. I last saw her sometime in November, performed an echocardiogram in the office and her ejection fraction was about 55%. She has been doing fairly well. However, she came into the hospital with complaints of what seems to be palpitations and was found to be in atrial fibrillation with a moderately rapid ventricular rate. At about 4:30 this morning she woke up with some discomfort in the chest, a fluttering feeling, and after she arrived she was in atrial fib rapid rate. Now the rate is controlled. Her symptoms have resolved. She is resting comfortably without symptoms. She has no chest pain or shortness of breath or palpitation at the time of my evaluation. PAST MEDICAL HISTORY: 1. Paroxysmal atrial fibrillation. 2. Hypertension. 3. History of breast cancer, recent recurrence with metastasis on chemotherapy. 4. Hyperlipidemia. 5. History of degenerative joint disease. MEDICATIONS: At home include Eliquis 5 mg b.i.d., vitamin supplements, rosuvastatin 5 mg daily, Lasix 20 mg daily, Lopressor 25 mg b.i.d., and she also takes some omeprazole. ALLERGIES: She is allergic to SULFA AND ERYTHROMYCIN. She has also has a previous history of breast surgery and cholecystectomy. LABORATORY DATA: Suggested that her 2 sets of troponins were unremarkable. She has a normal BNP and her cholesterol levels are normal. Her D-dimer was also normal. PHYSICAL EXAMINATION: Blood pressure is 118/70, pulse rate is about 100-110, irregular. HEENT unremarkable. Fundus was not examined by me. Neck is supple. There is no JVD. I do not hear a carotid bruit. Heart exam reveals S1, S2 with a regular rhythm short systolic murmur. Lungs are clear. Abdomen is soft, nontender. Lower extremities reveal normal pulses. No edema. Central nervous system is normal. EKG revealed atrial fib, rapid ventricular rate with a nonspecific ST changes. IMPRESSION: 1. Paroxysmal symptomatic atrial fibrillation. 2. Chest pain related to atrial fibrillation which has now resolved. 3. History of breast cancer with metastasis, on chemotherapy. 4. Hypertension. 5. Hyperlipidemia. RECOMMENDATIONS: I am recommending that we will initiate her on amiodarone bolus and drip to convert her to sinus rhythm, continue Eliquis 5 mg b.i.d., discontinue the aspirin, continue her other medications as before and hopefully she will convert to sinus rhythm. I will also increase the metoprolol tartrate to 75 mg b.i.d. Based on clinical course I will make further recommendations. We will discontinue the aspirin that is also ordered. So, patient will be on Eliquis 5 b.i.d. metoprolol tartrate 75 mg b.i.d., amiodarone bolus and drip and EKG in the morning. I discussed my thoughts in detail with the patient. I will also obtain thyroid function tests and also liver function tests. Thank you very much for the consult. ROSE / MADINA: [id number] /
[2019-04-03] MEDS: AMIODARONE 200 MG TAB PO SCH (23:33)
[2019-04-04 06:19] LABS: Glucose,Whole Blood 172 mg/dL (75-99)
[2019-04-04] MEDS: INSULIN ASPART (NovoLOG) 100 UNIT/ML VIAL SQ SCH ×3 (06:23→18:12)
[2019-04-04] MEDS: PANTOPRAZOLE 40 MG TABLET PO SCH (06:25)
[2019-04-04] MEDS: APIXABAN 5 MG TAB PO SCH ×2 (09:23→20:34)
[2019-04-04] MEDS: METOPROLOL TARTRATE 25 MG TAB PO SCH ×2 (09:23→20:34)
[2019-04-04] MEDS: CHOLECALCIFEROL 1,000 UNIT TAB PO SCH (09:23)
[2019-04-04] MEDS: AMIODARONE 200 MG TAB PO SCH ×2 (09:29→20:34)
[2019-04-04] MEDS: NON FORMULARY DRUG (Ubidecarenone [Co Q-10] 300 MG) PO SCH (09:30)
[2019-04-04] MEDS: NON FORMULARY DRUG (Calcium/Magnesium/Zinc [Calcium-Magnesium-Zinc Tablet] 1 TAB) PO SCH (09:30)
[2019-04-04 12:08] LABS: Glucose,Whole Blood 169 mg/dL (75-99)
--- NOTE | 2019-04-04 13:09 | P.PN ---
Subjective Progress Note Date: 04/04/19 Principal diagnosis: Atrial Fibrillation RVR The patient is a 83-year-old female past medical history of GERD, hypertension, hyperlipidemia, atrial fibrillation, left breast mastectomy in 2000 and breast cancer in 2019. Patient currently being treated for breast cancer with chem otherapy and anti-hormonal agents. Patient presented to ER on 04/02/2019 with complaints of chest pain that radiated to her back and made her short of breath. Patient was started on amiodarone drip yesterday for a short period and converted to sinus rhythm. Patient now sinus bradycardic, will decrease metoprolol tartrate 75 mg TID down to 25 mg twice daily. Continue Eliquis 5mg BID. Patient sitting up in chair comfortable with no current complaints of chest pain, chest pressure, shortness of breath or palpitations. Patient states she is ready to go home. Currently has sinus bradycardia, heart rate 67. VSS. 98% on room air. Labs within normal limits. PHYSICAL EXAMINATION: HEENT: Head is atraumatic, normocephalic. Pupils are equal, round. Sclerae anicteric. Conjunctivae are clear. Mucous membranes of the mouth are moist. Neck is supple. There is no jugular venous distention. No carotid bruit is heard. No thyromegaly. LUNGS: Clear to auscultation no wheezes, rales or rhonchi. No chest wall tenderness is noted on palpation or with deep breathing. HEART: Regular rate and rhythm without murmurs, rubs or gallops. S1 and S2 heard. ABDOMEN: Abdominal exam revealed normal bowel sounds. The abdomen was soft, non- tender, and without masses, organomegaly, or appreciable enlargement of the abdominal aorta. EXTREMITIES: Examination of the extremities revealed easily palpable radial, femoral and pedal pulses. There was no cyanosis, clubbing or edema. No calf tenderness noted. VASCULAR: Radial and dorsalis pedis pulses palpated, no evidence of clubbing. NEUROLOGIC: Patient is awake, alert and oriented x3. There were no obvious focal neurologic abnormalities. FINAL IMPRESSION: 1. New onset atrial fibrillation, improved now sinus bradycardia.. 2. Breast cancer on chemotherapy and hormonal therapy. 3. Left breast mastectomy 4. Hypertension. 5. Hyperlipidemia. PLAN: DECREASE metoprolol tartrate 75 mg TID to 25 mg twice daily. Continue oral amiodarone 200 mg twice daily. Continue ELiquis 5mg BID. Continue same all other medical/medication regime. CLEAR FOR DISCHARGE from a cardiology standpoint. Follow-up visit in office in 3 weeks. Objective - Vital Signs Vital signs: Vital Signs Temp 97.9 F 04/04/19 08:00 Pulse 78 04/04/19 08:00 Resp 18 04/04/19 08:00 BP 138/62 04/04/19 08:00 Pulse Ox 95 04/04/19 08:00 Intake & Output 04/03/19 04/04/19 04/04/19 19:59 06:59 18:59 Intake Total Output Total Balance Weight Intake: Intake, IV Titration Amount Amiodarone 360 mg In Dextrose 5% in Water 200 ml @ 1 MG/MIN 33.333 mls/ hr IV .Q6H [facility] Rx#: [id number] Oral Output: Urine Other: # Voids 2 - Labs CBC & Chem 7: 04/02/19 08:30 04/03/19 16:28 Labs: Abnormal Lab Results - Last 24 Hours (Table) 04/03/19 04/03/19 04/03/19 Range/Units 16:28 16:55 21:02 BUN 20 H (7-17) mg/dL Glucose 174 H (74-99) mg/dL POC Glucose (mg/dL) 158 H 188 H (75-99) mg/dL 04/04/19 04/04/19 Range/Units 06:18 11:57 BUN (7-17) mg/dL Glucose (74-99) mg/dL POC Glucose (mg/dL) 172 H 169 H (75-99) mg/dL
--- NOTE | 2019-04-04 13:57 | P.PN ---
Subjective Progress Note Date: 04/04/19 Progress note date of service 04/04/2019. Patient seen and evaluated discussed with the current management. Patient converted to sinus rhythm in the rate of 61 bpm., She still has swelling of her lower extremities from the IV infusions for the amiodarone. Patient placed on amiodarone 200 mg twice a day. Cardiology Dr. AMANDA Muñoz. Vital signs stable temperature 97.9 orally F, heart rate 7070 8/m regular. Respiratory rate 16-18 nonlabored., Blood pressure 138/62 which returned from hypo-tensive to the normal blood pressure. Her pulse ox 95% on room air. Monitoring laboratories last one on 04/03/2019 with the normal calcium and liver function AST LT alk phos as well as normal TSH and albumin and protein. Diabetes mellitus type 2 has been monitored covered with insulin with the underlying diabetes mellitus 2 was on diet and will be starting her today on metformin 500 mg twice a day with the future plan to adjust medication as outpatient with a diabetic diet as well as monitoring CBG twice a day. At this time no need for future home insulin. Patient advised to his ambulation 4 times a day in the hallway in the hospital to see of recurrent of atrial fibrillation. And tomorrow probably with the stability of heart rate, and if no recurrence of atrial fibrillation, and the effect of metformin. We'll plan for discharge home tomorrow. [id number] examination: Patient is conscious alert oriented and she is ambulatory she complaining of her edema of the lower extremities however with the IV fluid and in the future for the improvement of heart rate and blood pressure will be mobilized and maybe use minor diuretics to resume normal status of the edema of the lower extremities. HEENT: Head was normocephalic and atraumatic pupils equal reactive and conjunctiva was pink sclera was nonicteric. Oropharynx normal with natural teeth. No hearing deficit and nose no rhinitis. Neck was supple no JVD no thyromegaly no lymphadenopathy trachea midline. Chest was clear to auscultation and percussion no wheezes no rhonchi's. The heart: Regular sinus rhythm and converted from atrial fibrillation to normal sinus with a rate of 60-70 on amiodarone. Abdomen was soft positive bowel sounds no tenderness she had a BM. Extremities: She has 1+ pitting edema on the foot and ankle bilateral which will be advised to lift her leg up leg elevation Will Not Use Any Diuretic at This Time. And May Be Mobilized by Leg Elevation. Neurologically Stable: Able to Communicate Freely No Lateralizing Sign. No Neuro Deficit. Assessment: Acute Atrial Fibrillation with the Rate 145 Admitted to the Hospital on cardiazm IV drip which was not effective, subsequently started on amiodarone drip which was effective with return to normal sinus and patient placed on amiodarone by mouth meanwhile patient already on anticoagulation and requests. #2 diabetes mellitus2 with started the metformin twice a day and for further monitoring assessment as outpatient. #3 ambulation as tolerated. Plan: Ambulate as tolerated monitoring for recurrence of atrial fibrillation, monitoring the blood pressure, Plan for discharge tomorrow if there is no adverse effects to follow with the cardiology Dr. AMANDA Muñoz as well as the primary care Dr. Garza. Objective - Vital Signs Vital signs: Vital Signs Temp 97.9 F 04/04/19 08:00 Pulse 78 04/04/19 08:00 Resp 18 04/04/19 08:00 BP 138/62 04/04/19 08:00 Pulse Ox 95 04/04/19 08:00 Intake & Output 04/03/19 04/04/19 04/04/19 19:59 06:59 18:59 Intake Total Output Total Balance Weight Intake: Intake, IV Titration Amount Amiodarone 360 mg In Dextrose 5% in Water 200 ml @ 1 MG/MIN 33.333 mls/ hr IV .Q6H ONE Rx#: [id number] Oral Output: Urine Other: # Voids 2 - Labs CBC & Chem 7: 04/02/19 08:30 04/03/19 16:28 Labs: Abnormal Lab Results - Last 24 Hours (Table) 04/03/19 04/03/19 04/03/19 Range/Units 16:28 16:55 21:02 BUN 20 H (7-17) mg/dL Glucose 174 H (74-99) mg/dL POC Glucose (mg/dL) 158 H 188 H (75-99) mg/dL 04/04/19 04/04/19 Range/Units 06:18 11:57 BUN (7-17) mg/dL Glucose (74-99) mg/dL POC Glucose (mg/dL) 172 H 169 H (75-99) mg/dL
[2019-04-04] MEDS: RIBOCICLIB PO SCH (14:36)
[2019-04-04 17:15] LABS: Glucose,Whole Blood 168 mg/dL (75-99)
[2019-04-04] MEDS: metFORMIN 500 MG TAB PO SCH (18:11)
[2019-04-04] MEDS: LATANOPROST 0.005% OPHTH DROPS 2.5 ML BTL BOTH EYES SCH (20:35)
[2019-04-04 21:15] LABS: Glucose,Whole Blood 180 mg/dL (75-99)
[2019-04-05 06:16] LABS: Glucose,Whole Blood 169 mg/dL (75-99)
[2019-04-05] MEDS: metFORMIN 500 MG TAB PO SCH (06:55)
[2019-04-05] MEDS: INSULIN ASPART (NovoLOG) 100 UNIT/ML VIAL SQ SCH ×3 (06:55→16:29)
[2019-04-05] MEDS: PANTOPRAZOLE 40 MG TABLET PO SCH (06:56)
[2019-04-05] MEDS: NON FORMULARY DRUG (Calcium/Magnesium/Zinc [Calcium-Magnesium-Zinc Tablet] 1 TAB) PO SCH (08:10)
[2019-04-05] MEDS: APIXABAN 5 MG TAB PO SCH ×2 (08:10→19:52)
[2019-04-05] MEDS: NON FORMULARY DRUG (Ubidecarenone [Co Q-10] 300 MG) PO SCH (08:10)
[2019-04-05] MEDS: METOPROLOL TARTRATE 25 MG TAB PO SCH (08:10)
[2019-04-05] MEDS: CHOLECALCIFEROL 1,000 UNIT TAB PO SCH (08:10)
[2019-04-05] MEDS: AMIODARONE 200 MG TAB PO SCH ×2 (08:10→19:52)
--- NOTE | 2019-04-05 11:06 | P.PN ---
Subjective Progress Note Date: 04/05/19 The patient is a 83-year-old female past medical history of GERD, hypertension, hyperlipidemia, atrial fibrillation, left breast mastectomy in 2001 and breast cancer in 2019. Patient currently being treated for breast cancer with chemotherapy and anti-hormonal agents. Patient had gone into atrial fibril lation, converted to normal sinus, and again yesterday went back into A. fib. This morning she continues to be in atrial fibrillation, her heart rate around 90-110. Overall she's feeling well, denies any palpitations, breathing is stable. Blood pressure 120/70 with a heart rate of 110, 97% on room air. No lab data today. Patient is currently on amiodarone 200 mg one tablet by mouth twice a day, Eliquis 5 mg twice a day, metoprolol 25 mg twice a day. Objective - Vital Signs Vital signs: Vital Signs Temp 98.1 F 04/05/19 08:18 Pulse 120 H 04/05/19 08:18 Resp 18 04/05/19 08:18 BP 121/76 04/05/19 08:18 Pulse Ox 97 04/05/19 08:18 Intake & Output 04/04/19 04/05/19 04/05/19 18:59 06:59 18:59 Intake Total 240 Output Total 600 Balance -360 Weight 92.6 kg Intake: Oral 240 Output: Urine 600 Other: # Voids 2 1 1 - Exam PHYSICAL EXAMINATION: GENERAL: 83-year-old female in no acute distress at the time of my examining HEENT: Head is atraumatic, normocephalic. Pupils equal, round. Sclera anicteric. Conjunctiva are clear. Mucous membranes of the mouth are moist. Neck is supple. There is no elevated jugular venous pressure.No carotid bruit is heard. HEART EXAMINATION: Heart S1, S2 irregularly irregular . CHEST EXAMINATION: Lungs are clear to auscultation and precussion. No chest wall tenderness is noted on palpation or with deep breathing. ABDOMEN: Soft, nontender. Bowel sounds are heard. No organomegaly noted. EXTREMITIES: 2+ peripheral pulses with no evidence of peripheral edema and no calf tenderness noted. NEUROLOGIC patient is awake, alert and oriented X3. . - Labs CBC & Chem 7: 04/02/19 08:30 04/03/19 16:28 Labs: Abnormal Lab Results - Last 24 Hours (Table) 04/04/19 04/04/19 04/04/19 Range/Units 11:57 17:08 21:14 POC Glucose (mg/dL) 169 H 168 H 180 H (75-99) mg/dL 04/05/19 Range/Units 06:14 POC Glucose (mg/dL) 169 H (75-99) mg/dL Assessment and Plan Plan: FINAL IMPRESSION: 1. Paroxysmal atrial fibrillation. 2. Breast cancer on chemotherapy and hormonal therapy. 3. Left breast mastectomy 4. Hypertension. 5. Hyperlipidemia. Plan We will increase the dose of beta wyatt to 25 mg one tablet by mouth 3 times a day for more optimal heart rate control. Continue amiodarone and Eliquis. Discharge once cleared by primary. DNP note has been reviewed, I agree with a documented findings and plan of care. Patient was seen and examined.
[2019-04-05 11:45] LABS: Glucose,Whole Blood 154 mg/dL (75-99)
[2019-04-05 12:03] LABS: Hemoglobin A1C 6.6 % (4.0-6.0)
[2019-04-05] MEDS: FUROSEMIDE 40 MG TAB PO SCH (12:23)
[2019-04-05] MEDS ORDERED: METOPROLOL TARTRATE 25 MG TAB PO STA (13:32)
[2019-04-05] MEDS: RIBOCICLIB PO SCH (13:54)
[2019-04-05 16:31] LABS: Glucose,Whole Blood 151 mg/dL (75-99)
--- NOTE | 2019-04-05 16:45 | P.PN ---
Subjective Progress Note Date: 04/05/19 Principal diagnosis: #1 atrial fibrillation with a rapid ventricular response. #2 diabetes mellitus type 2 history be on diet currently, currently on insulin to scale. #3 normal troponin and her total cholesterol 129., Normal d-dimer. #4 history of left breast cancer status post mastectomy 22 years ago with recent lymph node positive for malignancy [address] Rashid. #5 history of chronic cough with the questionable asthmatic component. Chest x- ray no acute pulmonary process. #6 hyperlipidemia. Number #7 hypertension. Essential. dictated on phone Objective - Vital Signs Vital signs: Vital Signs Temp 98.1 F 04/05/19 15:30 Pulse 111 H 04/05/19 15:32 Resp 18 04/05/19 15:32 BP 121/75 04/05/19 15:30 Pulse Ox 95 04/05/19 15:30 Intake & Output 04/04/19 04/05/19 04/05/19 18:59 06:59 18:59 Intake Total 1130 Output Total 600 Balance 530 Weight 92.6 kg Intake: IV 30 Invasive Line 2 30 Oral 1100 Output: Urine 600 Other: # Voids 2 1 1 - Labs CBC & Chem 7: 04/02/19 08:30 04/03/19 16:28 Labs: Abnormal Lab Results - Last 24 Hours (Table) 04/03/19 04/04/19 04/04/19 Range/Units 16:28 17:08 21:14 POC Glucose (mg/dL) 168 H 180 H (75-99) mg/dL Hemoglobin A1c 6.6 H (4.0-6.0) % 04/05/19 04/05/19 04/05/19 Range/Units 06:14 11:43 16:28 POC Glucose (mg/dL) 169 H 154 H 151 H (75-99) mg/dL Hemoglobin A1c (4.0-6.0) %
--- NOTE | 2019-04-05 17:48 | PN ---
PROGRESS NOTE DATE OF SERVICE: 04/05/2019 Her height 5 feet 5 inches and weight 92.6 kg, BSA 2 m2, BMI 34.0 kg/m2. ALLERGY: ERYTHROMYCIN BASE, SULFONAMIDE BASE. SHE HAS ALSO THE ADVERSE EFFECTS WITH METFORMIN CAUSES HEADACHE. On the today visit, we discussed her underlying atrial fibrillation with a rapid ventricular response. I did look at the endodontist and found that at that time was 122 heart rate with the rapid ventricular response. She has been fluctuating on the heart rate in spite that she is on the amiodarone and a small dose of beta-wyatt 25 mg twice a day, which I did increase to 50 mg twice a day for possible more effect as her blood pressure is improving. She has also edema of the lower extremities with gaining weight and almost 4-5 pounds. We started her on the Lasix 40 mg daily. The patient is still feeling the palpitation and she is not ready yet as she came with heart rate 145 with a rapid ventricular response and currently she is average of 122 with no great response at this time. Once the patient is controlled her rate we will be discharging her home. I did discuss it with Dr. Jackson, who agreed with the plan. Her vital signs: Temperature 98.1 orally, and her heart rate 111 per minute, irregular irregularities and her respiratory rate 18, nonlabored, blood pressure 121/75 with a mean 90 and saturation on room air 95%. LABORATORIES: We checked that as well and she has no new labs today. Her CBG between 169-151. She could not take the metformin causing her headache and adverse effect. For that purpose, was discontinued and she refused that as well and we continued with the insulin to scale which she will be continuing on the insulin to scale at this time, and we continued to have the Lasix on a daily basis due to her peripheral edema 2 to 3+ with the filling up secondary to IV that has been given through the Cardizem as well as the . We will be obtaining tomorrow [facility] for evaluation as well. On examination, patient is conscious, alert, oriented, able to discuss with her her current problem and the reason for monitoring and keep her 1 day more. We increasing her beta wyatt to metoprolol tartrate 50 mg twice a day. We discussed also the improvement of the blood pressure as well. Meanwhile, discussed with the Lasix to be given for the fluid retention. HEENT was negative. Neck was supple. No JVD. The chest was clear to auscultation and percussion. No wheezes, no rhonchi and she has chronic cough. The heart was irregular irregularities with the apparently compensated heart and we will be obtaining pro-BNP tomorrow. The abdomen is soft, positive bowel sounds and extremities is 2 to 3+ bilateral in the lower extremities. However, the pulses intact. ASSESSMENT: 1. Atrial fibrillation with rapid ventricular response not completely cleared with the rate 122. 2. Underlying peripheral edema with 2 to 3+ pitting edema on the lower extremities. PLAN: We will start her on Lasix daily as well as checking the BMP tomorrow and increase her beta wyatt to 50 mg twice a day and monitoring her. Her diabetes mellitus is monitored with the CBG to scale and insulin coverage. MMODL / ELIN: [id number] /
[2019-04-05] MEDS: LATANOPROST 0.005% OPHTH DROPS 2.5 ML BTL BOTH EYES SCH (19:52)
[2019-04-05] MEDS: ATORVASTATIN 10 MG TAB PO SCH (19:52)
[2019-04-05] MEDS ORDERED: METOPROLOL TARTRATE 50 MG TAB PO SCH (21:00)
[2019-04-05 21:04] LABS: Glucose,Whole Blood 202 mg/dL (75-99)
[2019-04-06 06:30] LABS: Basophils % (A) 1 %; Eosinophils % (A) 1 %; HCT 30.3 % (34.0-46.0); HGB 10.3 gm/dL (11.4-16.0); Lymphocytes # (A) 0.7 k/uL (1.0-4.8); Lymphocytes % (A) 23 %; MCH 35.8 pg (25.0-35.0); MCHC 34.1 g/dL (31.0-37.0); MCV 105.1 fL (80.0-100.0); Macrocytosis Slight; Mean Platelet Volume 6.6; Monocytes # (A) 0.1 k/uL (0-1.0); Monocytes % (A) 4 %; Neutrophils # (A) 2.2 k/uL (1.3-7.7); Neutrophils % (A) 68 %; Platelet Count 256 k/uL (150-450); Poikilocytosis Slight; RBC 2.88 m/uL (3.80-5.40); RDW 14.3 % (11.5-15.5); WBC 3.3 k/uL (3.8-10.6)
[2019-04-06 06:32] LABS: Glucose,Whole Blood 167 mg/dL (75-99)
[2019-04-06] MEDS: INSULIN ASPART (NovoLOG) 100 UNIT/ML VIAL SQ SCH ×2 (06:36→11:40)
[2019-04-06] MEDS: PANTOPRAZOLE 40 MG TABLET PO SCH (06:36)
[2019-04-06 06:54] LABS: Calcium 9.1 mg/dL (8.4-10.2); Potassium 4.4 mmol/L (3.5-5.1)
[2019-04-06] MEDS: AMIODARONE 200 MG TAB PO SCH (07:48)
[2019-04-06] MEDS: FUROSEMIDE 40 MG TAB PO SCH (07:49)
[2019-04-06] MEDS: NON FORMULARY DRUG (Ubidecarenone [Co Q-10] 300 MG) PO SCH (07:49)
[2019-04-06] MEDS: CHOLECALCIFEROL 1,000 UNIT TAB PO SCH (07:49)
[2019-04-06] MEDS: NON FORMULARY DRUG (Calcium/Magnesium/Zinc [Calcium-Magnesium-Zinc Tablet] 1 TAB) PO SCH (07:49)
[2019-04-06] MEDS: APIXABAN 5 MG TAB PO SCH (07:49)
[2019-04-06 08:19] VITALS: TEMP 97.4
[2019-04-06] MEDS ORDERED: METOPROLOL TARTRATE 50 MG TAB PO SCH (09:00)
--- NOTE | 2019-04-06 09:52 | P.PN ---
Subjective Progress Note Date: 04/06/19 The patient is a 83-year-old female past medical history of GERD, hypertension, hyperlipidemia, atrial fibrillation, left breast mastectomy in 2001 and breast cancer in 2019. Patient currently being treated for breast cancer with chemotherapy and anti-hormonal agents. Patient had gone into atrial fibril lation, converted to normal sinus, and again yesterday went back into A. fib. This morning she continues to be in atrial fibrillation, her heart rate around 90-110. Overall she's feeling well, denies any palpitations, breathing is stable. Blood pressure 120/70 with a heart rate of 110, 97% on room air. No lab data today. Patient is currently on amiodarone 200 mg one tablet by mouth twice a day, Eliquis 5 mg twice a day, metoprolol 25 mg twice a day. 04/06/2019 Patient was seen and examined this morning, overall she feels well, her heart rate is 1:15 116 this morning, she denies feeling her heart racing fast, no shortness of breath, no dizziness or lightheadedness. Yesterday her dose of beta wyatt had been increased, we will increase it to a 3 times a day dose today. Blood pressure 120/60 with a heart rate in the 1 teens. White blood cell count 3.3, hemoglobin 10.3, platelet count 256. Sodium 139, potassium 4.4, BUN 22 and creatinine 1.0. Objective - Vital Signs Vital signs: Vital Signs Temp 97.4 F L 04/06/19 07:15 Pulse 102 H 04/06/19 08:00 Resp 18 04/06/19 08:00 BP 109/77 04/06/19 07:15 Pulse Ox 96 04/06/19 07:15 Intake & Output 04/05/19 04/06/19 04/06/19 18:59 06:59 18:59 Intake Total 1390 240 Output Total 600 Balance 790 240 Weight 91.9 kg Intake: IV 30 Invasive Line 2 30 Oral 1360 240 Output: Urine 600 Other: # Voids 1 1 - Exam PHYSICAL EXAMINATION: GENERAL: 83-year-old female in no acute distress at the time of my examining HEENT: Head is atraumatic, normocephalic. Pupils equal, round. Sclera anicteric. Conjunctiva are clear. Mucous membranes of the mouth are moist. Neck is supple. There is no elevated jugular venous pressure.No carotid bruit is heard. HEART EXAMINATION: Heart S1, S2 irregularly irregular . CHEST EXAMINATION: Lungs are clear to auscultation and precussion. No chest wall tenderness is noted on palpation or with deep breathing. ABDOMEN: Soft, nontender. Bowel sounds are heard. No organomegaly noted. EXTREMITIES: 2+ peripheral pulses with no evidence of peripheral edema and no calf tenderness noted. NEUROLOGIC patient is awake, alert and oriented X3. . - Labs CBC & Chem 7: 04/06/19 05:49 04/06/19 05:49 Labs: Abnormal Lab Results - Last 24 Hours (Table) 04/03/19 04/05/19 04/05/19 Range/Units 16:28 11:43 16:28 WBC (3.8-10.6) k/uL RBC (3.80-5.40) m/uL Hgb (11.4-16.0) gm/dL Hct (34.0-46.0) % MCV (80.0-100.0) fL MCH (25.0-35.0) pg Lymphocytes # (1.0-4.8) k/uL BUN (7-17) mg/dL Creatinine (0.52-1.04) mg/dL Glucose (74-99) mg/dL POC Glucose (mg/dL) 154 H 151 H (75-99) mg/dL Hemoglobin A1c 6.6 H (4.0-6.0) % 04/05/19 04/06/19 04/06/19 Range/Units 21:04 05:49 05:49 WBC 3.3 L (3.8-10.6) k/uL RBC 2.88 L (3.80-5.40) m/uL Hgb 10.3 L (11.4-16.0) gm/dL Hct 30.3 L (34.0-46.0) % MCV 105.1 H (80.0-100.0) fL MCH 35.8 H (25.0-35.0) pg Lymphocytes # 0.7 L (1.0-4.8) k/uL BUN 22 H (7-17) mg/dL Creatinine 1.07 H (0.52-1.04) mg/dL Glucose 170 H (74-99) mg/dL POC Glucose (mg/dL) 202 H (75-99) mg/dL Hemoglobin A1c (4.0-6.0) % 04/06/19 Range/Units 06:31 WBC (3.8-10.6) k/uL RBC (3.80-5.40) m/uL Hgb (11.4-16.0) gm/dL Hct (34.0-46.0) % MCV (80.0-100.0) fL MCH (25.0-35.0) pg Lymphocytes # (1.0-4.8) k/uL BUN (7-17) mg/dL Creatinine (0.52-1.04) mg/dL Glucose (74-99) mg/dL POC Glucose (mg/dL) 167 H (75-99) mg/dL Hemoglobin A1c (4.0-6.0) % Assessment and Plan Plan: FINAL IMPRESSION: 1. Paroxysmal atrial fibrillation. 2. Breast cancer on chemotherapy and hormonal therapy. 3. Left breast mastectomy 4. Hypertension. 5. Hyperlipidemia. Plan We will increase the dose of beta wyatt to 50 mg one tablet by mouth 3 times a day for more optimal heart rate control. Continue amiodarone and Eliquis. Discharge once cleared by primary. DNP note has been reviewed, I agree with a documented findings and plan of care. Patient was seen and examined.
[2019-04-06 11:28] LABS: Glucose,Whole Blood 172 mg/dL (75-99)
[2019-04-06 12:08] VITALS: BP 116/70; PULSE 96; RESP 16
--- NOTE | 2019-04-06 12:50 | P.DS ---
Providers Date of admission: 04/02/19 10:37 Expected date of discharge: 04/06/19 Attending physician: Josias Garza Consults: 04/02/19 10:37 Consult Physician Urgent Consulting Provider: [facility] Reason/Comments: A. fib with rapid ventricular response Do you want consulting provider notified?: Yes Primary care physician: Josias Garza Final diagnosis: #1 acute atrial fibrillation with rapid ventricular response on admission 1 45 bpm on discharge 96-102 with the acceptable without symptoms. #2 hypotension with the acute atrial fibrillation with a rapid ventricular response results currently controlled 116/70. #3 history of chronic cough with the hypersensitivity with the seasons change. #4 diabetes mellitus2 with adverse affect with metformin patient on insulin to scale with NovoLog pen. #5 patient on anticoagulant eliquis 5 mg twice a day. Presentation in the ER: Palpitation increase the heart rate feeling some discomfort of the chest. EKG was atrial fibrillation with rapid ventricular response 1 45 bpm. Troponin was normal and chest x-ray was negative. 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 AMANDA Muñoz. Hospital course: Patient started on Cardizem drip in the ER however the beta wyatt was started. Seen by the anesthesia resident and meanwhile her resistant of atrial fib. Subsequently seen by Dr. AMANDA Muñoz and the weekend and discontinuation of the cardiac exam drip and started on amiodarone drip which did change to subsequently to sinus rhythm and patient subsequently started on amiodarone 200 mg twice a day. Patient is reversed to a tibial fib subsequently with the monitoring and at that time we added the beta wyatt metoprolol tartrate 50 mg twice a day as discussed with Dr. Eller anesthesia resident however still heart rate was improved but not completely controlled rate and Dr. Samaniego adjusted the dose to 50 mg 3 times a day of the metoprolol tartrate. Patient felt better and she is able to ambulate and took a shower with the activity her heart rate up however in a steady state she is stable and no feeling of chest pain or pressure and the heart rate ranging between 102-96. With the IV fluid was associated with the cardiac exam as well as the amiodarone she has gained weight with the also on edema of the lower extremities and which she has been improved significantly with the starting of Lasix 40 mg every morning however patient already was on Lasix 20 and we preferred slowly utilize diuretics in a small dose. On examination on discharge patient's conscious alert oriented ambulatory her vital sign indicating temperature 97.4 FL and earlier was 98.5 her pulse rate is 96 bpm ranging to 102. However may go up to 110 with the #. She has no symptoms of chest pain or palpitation respiratory rate is 16/m nonlabored on room air her blood pressure 116/70 with a mean blood pressure 85. Her HEENT was negative and pupil was equal reactive no lateralizing sign and o ropharynx normal natural teeth neck was supple no JVD no thyromegaly no lymphadenopathy. The chest clear to auscultation and percussion and no wheezes no rhonchi's the heart PMI in the fifth intercostal space and outside midclavicular line normal S1-S2 no gallop and she had no evidence of cardiac decompensation and abdomen soft positive bowel sounds no organ enlargement and extremity she had a trace edema and continued with the Lasix. 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 She Her chemistry indicating sodium 139 potassium 4.4 chloride 102 carbon dioxide 30 and anion gap 7 her BUN is 22 creatinine 1.07 with the estimated glomerular filtration rate is for non- is 48 Blood sugar was monitored and controlled with insulin to scale which will be continued. Calcium is normal 9.1. We will be adjusting the sugar glucose monitor plus the adjusting the insulin as outpatient. Her troponin on admission from the ER was normal there is an 0.012, [id number] with the normal E 1800 . Hemoglobin A1c;6.6 on 04/03/2019 Assessment and plan Patient's condition discharge home today, Dr. AMANDA Muñoz, comfortable on nocturnal Safi, and we will be giving her prescription was E he prescribed to Yesenia in the hospital Plan - Discharge Summary Discharge Rx Participant: No New Discharge Prescriptions: New Amiodarone [Cordarone] 200 mg PO BID #60 tab Metoprolol Tartrate [Lopressor] 50 mg PO TID #90 tab Nitroglycerin Sl Tabs [Nitrostat] 0.4 mg SUBLINGUAL Q5M PRN #30 tab PRN Reason: Chest Pain INSULIN ASPART (NovoLOG) [NovoLOG (formulary)] 2 - 10 unit SQ AC-TID #5 pen Continue Cholecalciferol [Vitamin D3 (25 Mcg = 1000 Iu)] 1,000 unit PO DAILY Apixaban [Eliquis] 5 mg PO BID Calcium/Magnesium/Zinc [Mntvshc-Qzwscvnuj-Vtpf Tablet] 1 tab PO DAILY Cranberry Fruit Extract [Cranberry] 200 mg PO DAILY Cinnamon Bark [Cinnamon] 500 mg PO MOWEFR Cetirizine HCl [Zyrtec] 10 mg PO DAILY PRN PRN Reason: Allergy Symptoms Rosuvastatin Calcium [Crestor] 5 mg PO MOWEFR Fish Oil/Dha/Epa [Fish Oil 1,200 mg Fish Oil] 1 cap PO MOWEFR Furosemide [Lasix] 20 mg PO DAILY Omeprazole [PriLOSEC] 20 mg PO DAILY Prochlorperazine [Compazine] 10 mg PO Q6H PRN PRN Reason: Nausea Ribociclib Succinate/Letrozole [Kisqali Femara 400 mg Co-Pack] 1 dose PO DIRECTED Ubidecarenone [Co Q-10] 300 mg PO DAILY Latanoprost Ophth [Xalatan 0.005%] 1 drop BOTH EYES HS Discontinued amLODIPine [Norvasc] 2.5 mg PO DAILY Metoprolol Tartrate [Lopressor] 25 mg PO BID Discharge Medication List Cholecalciferol [Vitamin D3 (25 Mcg = 1000 Iu)] 1,000 unit PO DAILY 03/27/16 [History] Apixaban [Eliquis] 5 mg PO BID 08/26/18 [History] Calcium/Magnesium/Zinc [Wnlhavr-Qkmqytnfg-Hhji Tablet] 1 tab PO DAILY 08/26/18 [History] Cetirizine HCl [Zyrtec] 10 mg PO DAILY PRN 08/26/18 [History] Cinnamon Bark [Cinnamon] 500 mg PO MOWEFR 08/26/18 [History] Cranberry Fruit Extract [Cranberry] 200 mg PO DAILY 08/26/18 [History] Rosuvastatin Calcium [Crestor] 5 mg PO MOWEFR 08/26/18 [History] Fish Oil/Dha/Epa [Fish Oil 1,200 mg Fish Oil] 1 cap PO MOWEFR 04/02/19 [History] Furosemide [Lasix] 20 mg PO DAILY 04/02/19 [History] Latanoprost Ophth [Xalatan 0.005%] 1 drop BOTH EYES HS 04/02/19 [History] Omeprazole [PriLOSEC] 20 mg PO DAILY 04/02/19 [History] Prochlorperazine [Compazine] 10 mg PO Q6H PRN 04/02/19 [History] Ribociclib Succinate/Letrozole [Kisqali Femara 400 mg Co-Pack] 1 dose PO DIRECTED 04/02/19 [History] Ubidecarenone [Co Q-10] 300 mg PO DAILY 04/02/19 [History] Amiodarone [Cordarone] 200 mg PO BID #60 tab 04/06/19 [Rx] INSULIN ASPART (NovoLOG) [NovoLOG (formulary)] 2 - 10 unit SQ AC-TID #5 pen 04/06/19 [Rx] Metoprolol Tartrate [Lopressor] 50 mg PO TID #90 tab 04/06/19 [Rx] Nitroglycerin Sl Tabs [Nitrostat] 0.4 mg SUBLINGUAL Q5M PRN #30 tab 04/06/19 [Rx] Follow up Appointment(s)/Referral(s): Chu Muñoz MD [STAFF PHYSICIAN] - 04/13/19 9:45 am (with Tamia HOWARD) Josias Garza MD [Primary Care Provider] - 04/09/19 4:20 pm (Friday) Patient Instructions/Handouts: A-fib (Atrial Fibrillation) (DC)
== END 2019-04-06 14:12 | disposition home or self-care (01) | DRG 309 ==
LOC: EC 08:05 → 3SCARD 10:37
PROVIDERS: ADMIT Internal Medicine; ATTEND Internal Medicine
DX: I48.0 Paroxysmal atrial fibrillation (principal); C77.3 Secondary and unspecified malignant neoplasm of axilla and upper limb lymph nodes; C50.912 Malignant neoplasm of unspecified site of left female breast; E78.00 Pure hypercholesterolemia, unspecified; E78.5 Hyperlipidemia, unspecified; I10 Essential (primary) hypertension; M85.80 Other specified disorders of bone density and structure, unspecified site; Z79.01 Long term (current) use of anticoagulants; Z79.4 Long term (current) use of insulin; Z79.899 Other long term (current) drug therapy; Z80.1 Family history of malignant neoplasm of trachea, bronchus and lung; Z80.3 Family history of malignant neoplasm of breast; Z82.0 Family history of epilepsy and other diseases of the nervous system; Z86.73 Personal history of transient ischemic attack (TIA), and cerebral infarction without residual deficits; Z88.1 Allergy status to other antibiotic agents; Z90.12 Acquired absence of left breast and nipple; Z96.1 Presence of intraocular lens; Z98.41 Cataract extraction status, right eye; Z98.42 Cataract extraction status, left eye; T38.3X5A Adverse effect of insulin and oral hypoglycemic [antidiabetic] drugs, initial encounter; R11.0 Nausea; T45.1X5A Adverse effect of antineoplastic and immunosuppressive drugs, initial encounter; K76.9 Liver disease, unspecified; I95.9 Hypotension, unspecified; I12.9 Hypertensive chronic kidney disease with stage 1 through stage 4 chronic kidney disease, or unspecified chronic kidney disease; E11.22 Type 2 diabetes mellitus with diabetic chronic kidney disease; N18.3 Chronic kidney disease, stage 3 (moderate); M19.90 Unspecified osteoarthritis, unspecified site; M54.5 Low back pain; Z87.440 Personal history of urinary (tract) infections; Z60.2 Problems related to living alone; Z81.8 Family history of other mental and behavioral disorders; Z88.2 Allergy status to sulfonamides; Z90.49 Acquired absence of other specified parts of digestive tract; K21.9 Gastro-esophageal reflux disease without esophagitis
CPT/HCPCS: 36415; 71046; 80048; 80053; 80061; 83036; 83735; 83880; 84443; 84484; 85025; 85379; 85610; 85730; 93005; 96365; 96366; 99291

== ENCOUNTER → 2023-08-22 | Outpatient (CLI) | payer MEDICARE, OTHER ==
--- NOTE | 2023-08-22 09:37 | US ---
EXAMINATION TYPE: US kidneys/renal and bladder DATE OF EXAM: 08/22/2023 COMPARISON: CLINICAL INDICATION: Female, 87 years old with history of N18.32 CHRONIC KIDNEY DISEASE, S N20.0 CALC ULUS OF K; No pain. Abnormal labs- kidney disease. EXAM MEASUREMENTS: Right Kidney: 9.2 x 4.4 x 5.2 cm Left Kidney: 9.6 x 4.0 x 4.7 cm Right Kidney: Right cortical hypoechoic lesion, possible cyst vs pyramid = 0.8 x 0.8 x 0.7 cm. A coup le tiny echogenic foci seen without shadowing, likely vascular interfaces. No shadowing calculi are o bserved. No mass or hydronephrosis. Left Kidney: No hydronephrosis or masses seen. No shadowing calculi. Bladder: Unable to visualize, nondistended IMPRESSION: 1. No shadowing calculi or hydronephrosis. 2. Subcentimeter hypoechoic focus in the right kidney, nonspecific. This could be cyst, pyramid, or other. Recommend follow-up ultrasound in about 6-12 months. 3. Nonvisualization of the bladder.
== END | disposition home or self-care (01) ==
LOC: RADUSWWP 08:44
PROVIDERS: ATTEND Internal Medicine
DX: N18.32 Chronic kidney disease, stage 3b (principal); N20.0 Calculus of kidney
CPT/HCPCS: 76770